=== PATIENT | male | born 1975 | race Caucasian/White ===

== ENCOUNTER 2019-10-04 17:18 | Emergency (ER) | payer MEDICAID ==
[~2019-10-04] VITALS: Ht 172.7 cm; Wt 59.0 kg
[2019-10-04 17:41] VITALS: BP 124/68; Ht 172.7 cm; Wt 59.0 kg
[2019-10-04 18:17] LABS: BASOPHIL % 1.2 % (0-2); PLATELET COUNT 405 x10^3mcL (130-400); RED CELL DISTRIBUTION WIDTH 17.3 % (11.5-14.5)
[2019-10-04 18:19] LABS: CALCIUM 7.3 mg/dL (8.5-10.1); CARBON DIOXIDE 26.3 mmol/L (21-32); CHLORIDE SERUM 103 mmol/L (98-107); CREATININE SERUM 0.8 mg/dL (0.7-1.3); GFR1 > 60 mL/min; GLUCOSE SERUM 97 mg/dL (74-106); SODIUM SERUM 141 mmol/L (136-145)
[2019-10-04 18:23] LABS: ALKALINE PHOSPHATASE 79 U/L (46-116); ALT/SGPT 27 U/L (16-63); AST/SGOT 28 U/L (15-37); BILIRUBIN TOTAL 0.5 mg/dL (0.20-1.00); TOTAL PROTEIN, SERUM 6.2 g/dL (6.4-8.2)
[2019-10-04 18:25] LABS: ALBUMIN 3.2 g/dL (3.4-5.0)
== END 2019-10-04 19:03 | disposition left against medical advice (07) ==
LOC: ED 17:18
PROVIDERS: Specialist
DX: F10.129 Alcohol abuse with intoxication, unspecified (principal); J45.909 Unspecified asthma, uncomplicated; Y90.9 Presence of alcohol in blood, level not specified
CPT/HCPCS: G0480; J3411; J3490; J7030

== ENCOUNTER 2019-10-08 20:48 | Emergency (ER) | payer MEDICAID ==
[~2019-10-08] VITALS: Ht 172.7 cm; Wt 74.8 kg
[2019-10-08 20:53] VITALS: Ht 172.7 cm; Wt 74.8 kg
[2019-10-09 05:46] VITALS: BP 127/68
== END 2019-10-09 05:46 | disposition short-term general hospital (02) ==
LOC: ED 20:48
DX: F10.129 Alcohol abuse with intoxication, unspecified (principal); F15.10 Other stimulant abuse, uncomplicated; J45.909 Unspecified asthma, uncomplicated; Z59.0 Homelessness; Y90.9 Presence of alcohol in blood, level not specified

== ENCOUNTER 2019-10-09 09:29 | Emergency (ER) | payer MEDICAID ==
[~2019-10-09] VITALS: Ht 182.9 cm; Wt 81.6 kg
[2019-10-09 09:31] VITALS: Ht 182.9 cm; Wt 81.6 kg
[2019-10-09 15:39] VITALS: BP 136/86
== END 2019-10-09 15:39 | disposition home or self-care (01) ==
LOC: ED 09:29
DX: F10.229 Alcohol dependence with intoxication, unspecified (principal); J45.909 Unspecified asthma, uncomplicated; Y90.9 Presence of alcohol in blood, level not specified

== ENCOUNTER 2019-10-09 20:00 | Emergency (ER) | payer MEDICAID ==
[~2019-10-09] VITALS: Ht 172.7 cm; Wt 56.7 kg
[2019-10-09 20:09] VITALS: Ht 172.7 cm; Wt 56.7 kg
[2019-10-09 21:00] LABS: BASOPHIL % 0.5 % (0-2); PLATELET COUNT 368 x10^3mcL (130-400); RED CELL DISTRIBUTION WIDTH 17.8 % (11.5-14.5)
[2019-10-09 21:11] LABS: CALCIUM 7.6 mg/dL (8.5-10.1); CARBON DIOXIDE 25.7 mmol/L (21-32); CHLORIDE SERUM 103 mmol/L (98-107); CREATININE SERUM 0.8 mg/dL (0.7-1.3); GFR1 > 60 mL/min; GLUCOSE SERUM 130 mg/dL (74-106); POTASSIUM SERUM 3.5 mmol/L (3.5-5.1); SODIUM SERUM 142 mmol/L (136-145)
[2019-10-09 21:25] LABS: ALKALINE PHOSPHATASE 91 U/L (46-116); ALT/SGPT 114 U/L (16-63); AST/SGOT 174 U/L (15-37); BILIRUBIN TOTAL 0.5 mg/dL (0.20-1.00); TOTAL PROTEIN, SERUM 6.4 g/dL (6.4-8.2)
[2019-10-09 21:55] LABS: ALBUMIN 3.2 g/dL (3.4-5.0)
[2019-10-10 02:51] VITALS: BP 136/80
== END 2019-10-10 06:41 | disposition home or self-care (01) ==
LOC: ED 20:00
PROVIDERS: Emergency Medicine
DX: F10.229 Alcohol dependence with intoxication, unspecified (principal); R40.4 Transient alteration of awareness; F17.210 Nicotine dependence, cigarettes, uncomplicated; J45.909 Unspecified asthma, uncomplicated; Z59.0 Homelessness; Y90.9 Presence of alcohol in blood, level not specified
CPT/HCPCS: 36415; G0480; Q0162

== ENCOUNTER 2019-10-13 09:24 | Emergency (ER) | payer MEDICAID ==
[~2019-10-13] VITALS: Ht 170.2 cm; Wt 74.8 kg
[2019-10-13 09:30] VITALS: Ht 170.2 cm; Wt 74.8 kg
[2019-10-13 14:23] VITALS: BP 128/78
== END 2019-10-13 14:23 | disposition home or self-care (01) ==
LOC: ED 09:24
DX: F10.129 Alcohol abuse with intoxication, unspecified (principal); J45.909 Unspecified asthma, uncomplicated; Z59.0 Homelessness; Y90.9 Presence of alcohol in blood, level not specified

== ENCOUNTER 2019-10-13 21:12 | Emergency (ER) | payer MEDICAID ==
[~2019-10-13] VITALS: Ht 170.2 cm; Wt 65.8 kg
[2019-10-13 21:24] VITALS: BP 120/78; Ht 170.2 cm; Wt 65.8 kg
== END 2019-10-13 22:35 | disposition left against medical advice (07) ==
LOC: ED 21:12
DX: Z53.21 Procedure and treatment not carried out due to patient leaving prior to being seen by health care provider (principal)

== ENCOUNTER 2019-10-14 12:12 | Emergency (ER) | payer MEDICAID ==
[~2019-10-14] VITALS: Ht 175.3 cm; Wt 61.2 kg
[2019-10-14 12:29] VITALS: Ht 175.3 cm; Wt 61.2 kg
[2019-10-14 15:52] VITALS: BP 121/82
== END 2019-10-14 15:52 | disposition left against medical advice (07) ==
LOC: ED 12:12
DX: G92 Toxic encephalopathy (principal); F10.129 Alcohol abuse with intoxication, unspecified; J45.909 Unspecified asthma, uncomplicated; Z59.0 Homelessness; Z88.6 Allergy status to analgesic agent; Y90.9 Presence of alcohol in blood, level not specified
CPT/HCPCS: J3411; J3475; J3490; J7030

== ENCOUNTER 2019-10-15 08:51 | Emergency (ER) | payer MEDICAID ==
[~2019-10-15] VITALS: Ht 167.6 cm; Wt 70.3 kg
[2019-10-15 09:15] VITALS: Ht 167.6 cm; Wt 70.3 kg
[2019-10-15 09:23] VITALS: BP 128/86
[2019-10-15 09:51] LABS: CALCIUM 7.5 mg/dL (8.5-10.1); CARBON DIOXIDE 24.8 mmol/L (21-32); CHLORIDE SERUM 103 mmol/L (98-107); CREATININE SERUM 0.7 mg/dL (0.7-1.3); GFR1 > 60 mL/min; GLUCOSE SERUM 114 mg/dL (74-106); POTASSIUM SERUM 3.9 mmol/L (3.5-5.1); SODIUM SERUM 140 mmol/L (136-145)
[2019-10-15 10:03] LABS: ALKALINE PHOSPHATASE 87 U/L (46-116); ALT/SGPT 122 U/L (16-63); AST/SGOT 162 U/L (15-37); BILIRUBIN TOTAL 0.7 mg/dL (0.20-1.00); TOTAL PROTEIN, SERUM 6.4 g/dL (6.4-8.2)
[2019-10-15 10:22] LABS: ALBUMIN 3.2 g/dL (3.4-5.0)
[2019-10-15 10:59] LABS: BASOPHIL % 0.6 % (0-2); PLATELET COUNT 240 x10^3mcL (130-400); RED CELL DISTRIBUTION WIDTH 18.5 % (11.5-14.5)
[2019-10-15 11:11] LABS: AMPHETAMINE QUAL UR NONE DETECTED (See below)
== END 2019-10-15 11:00 | disposition home or self-care (01) ==
LOC: ED 08:51
PROVIDERS: Emergency Medicine
DX: F10.129 Alcohol abuse with intoxication, unspecified (principal); J45.909 Unspecified asthma, uncomplicated; Z88.6 Allergy status to analgesic agent
CPT/HCPCS: 36415; G0480

== ENCOUNTER 2019-10-15 20:59 | Emergency (ER) | payer MEDICAID ==
[~2019-10-15] VITALS: Ht 167.6 cm; Wt 72.6 kg
[2019-10-15 21:05] VITALS: Ht 167.6 cm; Wt 72.6 kg
[2019-10-15 22:37] VITALS: BP 112/63
== END 2019-10-15 22:37 | disposition left against medical advice (07) ==
LOC: ED 20:59
DX: F10.129 Alcohol abuse with intoxication, unspecified (principal); J45.909 Unspecified asthma, uncomplicated; Z88.6 Allergy status to analgesic agent; Y90.9 Presence of alcohol in blood, level not specified

== ENCOUNTER 2019-10-16 11:04 | Emergency (ER) | payer MEDICAID | END 2019-10-16 11:41 | disposition left against medical advice (07) | LOC: ED 11:04 | DX: Z53.21 Procedure and treatment not carried out due to patient leaving prior to being seen by health care provider (principal) ==

== ENCOUNTER 2019-11-04 09:10 | Emergency (ER) | payer MEDICAID ==
[~2019-11-04] VITALS: Ht 182.9 cm; Wt 59.0 kg
[2019-11-04 09:14] VITALS: Ht 182.9 cm; Wt 59.0 kg
[2019-11-04 10:35] LABS: CALCIUM 7.9 mg/dL (8.5-10.1); CARBON DIOXIDE 22.7 mmol/L (21-32); CHLORIDE SERUM 105 mmol/L (98-107); CREATININE SERUM 0.8 mg/dL (0.7-1.3); GFR1 > 60 mL/min; GLUCOSE SERUM 84 mg/dL (74-106); POTASSIUM SERUM 4.7 mmol/L (3.5-5.1); SODIUM SERUM 143 mmol/L (136-145)
[2019-11-04 12:02] VITALS: BP 128/80
== END 2019-11-04 12:56 | disposition home or self-care (01) ==
LOC: ED 09:10
PROVIDERS: Emergency Medicine
DX: F10.129 Alcohol abuse with intoxication, unspecified (principal); J45.909 Unspecified asthma, uncomplicated; Z88.6 Allergy status to analgesic agent; Z59.0 Homelessness; Y90.8 Blood alcohol level of 240 mg/100 ml or more
CPT/HCPCS: G0480

== ENCOUNTER 2019-11-04 14:47 | Emergency (ER) | payer MEDICAID ==
[~2019-11-04] VITALS: Ht 172.7 cm; Wt 72.6 kg
[2019-11-04 15:12] VITALS: Ht 172.7 cm; Wt 72.6 kg
[2019-11-04 17:50] VITALS: BP 126/88
== END 2019-11-04 19:25 | disposition home or self-care (01) ==
LOC: ED 14:47
DX: F10.129 Alcohol abuse with intoxication, unspecified (principal); J45.909 Unspecified asthma, uncomplicated; Z88.6 Allergy status to analgesic agent; Y90.9 Presence of alcohol in blood, level not specified

== ENCOUNTER 2019-11-06 09:51 | Emergency (ER) | payer MEDICAID ==
[~2019-11-06] VITALS: Ht 170.2 cm; Wt 65.8 kg
[2019-11-06 09:55] VITALS: Ht 170.2 cm; Wt 65.8 kg
[2019-11-06 14:55] VITALS: BP 121/84
== END 2019-11-06 14:55 | disposition home or self-care (01) ==
LOC: ED 09:51
DX: F10.129 Alcohol abuse with intoxication, unspecified (principal); J45.909 Unspecified asthma, uncomplicated; Z88.6 Allergy status to analgesic agent

== ENCOUNTER 2019-11-07 11:45 | Emergency (ER) | payer MEDICAID ==
[~2019-11-07] VITALS: Ht 172.7 cm; Wt 68.0 kg
[2019-11-07 11:49] VITALS: Ht 172.7 cm; Wt 68.0 kg
[2019-11-07 12:39] LABS: BASOPHIL % 0.7 % (0-2)
[2019-11-07 12:51] LABS: RED CELL DISTRIBUTION WIDTH 18.6 % (11.5-14.5)
[2019-11-07 12:52] LABS: PLATELET COUNT 508 x10^3mcL (130-400)
[2019-11-07 13:50] LABS: CALCIUM 8.3 mg/dL (8.5-10.1); CARBON DIOXIDE 27.4 mmol/L (21-32); CHLORIDE SERUM 103 mmol/L (98-107); CREATININE SERUM 0.7 mg/dL (0.7-1.3); GFR1 > 60 mL/min; GLUCOSE SERUM 93 mg/dL (74-106); SODIUM SERUM 142 mmol/L (136-145)
[2019-11-07 14:38] VITALS: BP 118/73
[2019-11-07 14:53] LABS: AMPHETAMINE QUAL UR NONE DETECTED (See below)
== END 2019-11-07 16:07 | disposition left against medical advice (07) ==
LOC: ED 11:45
PROVIDERS: Emergency Medicine
DX: F10.129 Alcohol abuse with intoxication, unspecified (principal); J45.909 Unspecified asthma, uncomplicated; R41.82 Altered mental status, unspecified
CPT/HCPCS: 36569; G0480; J7030; Q0092

== ENCOUNTER 2019-11-08 14:07 | Emergency (ER) | payer MEDICAID ==
[~2019-11-08] VITALS: Ht 172.7 cm; Wt 68.0 kg
[2019-11-08 14:27] VITALS: BP 130/65; Ht 172.7 cm; Wt 68.0 kg
== END 2019-11-08 15:35 | disposition home or self-care (01) ==
LOC: ED 14:07
DX: R40.4 Transient alteration of awareness (principal); F10.129 Alcohol abuse with intoxication, unspecified; J45.909 Unspecified asthma, uncomplicated; Z88.6 Allergy status to analgesic agent